=== PATIENT | male | born 1930 | race Caucasian/White ===

== ENCOUNTER 2020-05-03 04:54 | Inpatient (IN) ==
[2020-05-03 05:53] LABS: Bilirubin,Urine Negative (Negative); Blood, Urine Large mg/dL (Negative); Glucose,Urine (UA) 50 mg/dL (Negative); Ketones,Urine 20 mg/dL (Negative); Mucus,Urine Occasional /LPF (Occasional); Nitrite,Urine Negative (Negative); Protein,Urine 100 MG/DL; RBC,Urine 215 /HPF (0-4); Renal Epithelial Cells,Urine Occasional /HPF (<1); Squamous Epithelial Cell,Urine Occasional /HPF (0-10); Urine Appearance Slightly Hazy (Clear); Urine Color Yellow (Yellow); Urine Specific Gravity 1.016 (1.001-1.035); Urine Urobilinogen < 2.0 EU/DL (0.2-1.0); WBC,Urine 26 /HPF (0-6)
[2020-05-03 05:55] LABS: INR 1.1; PT Patient Result 12.1 SECS (9.8-11.9)
[2020-05-03] MEDS ORDERED: SODIUM CHLORIDE 0.9% 500 ML IV STA (06:14)
[2020-05-03 06:26] LABS: Albumin 2.7 G/DL (3.4-5.0); Bilirubin,Total 0.9 MG/DL (0.2-1.0); Calcium 8.1 MG/DL (8.5-10.1); Osmolality,Calculated 276.1 MOS/KG (273-304); Potassium 3.1 MMOL/L (3.5-5.1); Total Protein 7.1 G/DL (6.4-8.3)
[2020-05-03] MEDS ORDERED: DOXYCYCLINE HYCLATE INJ 100 MG in SODIUM CHLORIDE 0.9% 100 ML IV STA (07:30)
[2020-05-03] MEDS ORDERED: cefTRIAXone 1,000 MG in SODIUM CHLORIDE 0.9% 100 ML IV STA (07:30)
[2020-05-03 07:47] LABS: Eosinophils % 1.1 % (0.00-10.9); Hematocrit 39.7 VOL% (42.0-52.0); Hemoglobin 13.3 GM/DL (14.0-18.0); Immature Granulocytes % 0.7 %; Immature Granulocytes Absolute 0.02 #; Lymphocytes # 0.4 10*3/uL (1.4-4.0); Lymphocytes % 15.5 % (21.2-54.2); Mean Corpuscular HGB Conc 33.5 GM/DL (32-36); Mean Corpuscular Volume 79.1 FL (87-102); Monocytes % 9.7 % (1.7-12.7); Red Blood Count 5.02 MC/CUMM (3.8-5.5); Red Cell Distribution Width 13.3 % (9.3-17.3); White Blood Count 2.8 T/CUMM (4-12)
[2020-05-03 07:53] LABS: Platelet Count 94 T/CUMM (130-400)
[2020-05-03] MEDS ORDERED: ASPIRIN 325 MG TABLET PO STA (07:55)
[2020-05-03] MEDS ORDERED: GLUCAGON 1 MG VIAL IM PRN (08:06)
[2020-05-03] MEDS ORDERED: DOCUSATE SODIUM 100 MG CAPSULE PO PRN (08:06)
[2020-05-03] MEDS ORDERED: DEXTROSE 50% 25 GM/50 ML VIAL IV PRN (08:06)
[2020-05-03 08:27] LABS: Band Neutrophils 4 % (0-10); Lymphocytes 18 % (20-55); Segmented Neutrophils 71 % (50-85); Total Cells Counted 100
[2020-05-03 08:28] LABS: Hypochromasia 1+; Microcytosis 1+
[2020-05-03] MEDS: ASCORBIC ACID 500 MG TABLET PO SCH ×2 (08:50→21:36)
[2020-05-03] MEDS: DEXAMETHASONE 4 MG/1 ML VIAL IV SCH (08:51)
[2020-05-03] MEDS ORDERED: DEXAMETHASONE 10 MG/1 ML VIAL IV SCH (09:00)
[2020-05-03] MEDS: FAMOTIDINE 20 MG TABLET PO SCH ×2 (09:01→21:36)
[2020-05-03] MEDS: CHOLECALCIFEROL 1,000 UNIT TABLET PO SCH (09:01)
[2020-05-03] MEDS: ZINC GLUCONATE 50 MG TABLET PO SCH (09:01)
[2020-05-03] MEDS: INSULIN LISPRO 100 UNIT/ML SUBCUT SCH ×3 (12:02→21:49)
[2020-05-03] MEDS: ENOXAPARIN 40 MG/0.4 ML SYRINGE SUBCUT SCH (14:30)
[2020-05-03] MEDS ORDERED: REMDESIVIR 200 MG in SODIUM CHLORIDE 0.9% 210 ML IV ONE (15:00)
[2020-05-03] MEDS: hydrALAZINE 20 MG/1 ML VIAL IV PRN ×2 (16:56→22:45)
[2020-05-03] MEDS: MELATONIN 3 MG TABLET PO PRN (21:36)
[2020-05-03] MEDS: DOXYCYCLINE HYCLATE INJ 100 MG in SODIUM CHLORIDE 0.9% 100 ML IV SCH (22:33)
[2020-05-04 05:58] LABS: Basophils % 0.3 % (0.0-0.8); Hematocrit 41.8 VOL% (42.0-52.0); Hemoglobin 13.6 GM/DL (14.0-18.0); Immature Granulocytes % 0.3 %; Immature Granulocytes Absolute 0.01 #; Lymphocytes # 0.6 10*3/uL (1.4-4.0); Lymphocytes % 17.1 % (21.2-54.2); Mean Corpuscular HGB Conc 32.5 GM/DL (32-36); Mean Corpuscular Volume 79.9 FL (87-102); Mean Platelet Volume 10.4 FL (9.6-12.0); Monocytes % 9.6 % (1.7-12.7); Neutrophils % 72.7 % (38.7-73.9); Platelet Count 126 T/CUMM (130-400); Red Blood Count 5.23 MC/CUMM (3.8-5.5); Red Cell Distribution Width 13.2 % (9.3-17.3); White Blood Count 3.6 T/CUMM (4-12)
[2020-05-04 05:58] LABS: Albumin 2.4 G/DL (3.4-5.0); Bilirubin,Total 0.7 MG/DL (0.2-1.0); Calcium 7.8 MG/DL (8.5-10.1); Ferritin 854.2 ng/ml (26-388); Potassium 3.1 MMOL/L (3.5-5.1); Total Protein 6.9 G/DL (6.4-8.3)
[2020-05-04] MEDS: DEXAMETHASONE 4 MG/1 ML VIAL IV SCH (08:18)
[2020-05-04] MEDS: ENOXAPARIN 40 MG/0.4 ML SYRINGE SUBCUT SCH (08:18)
[2020-05-04] MEDS: ASCORBIC ACID 500 MG TABLET PO SCH ×2 (08:19→22:14)
[2020-05-04] MEDS: FAMOTIDINE 20 MG TABLET PO SCH ×2 (08:19→22:14)
[2020-05-04] MEDS: ZINC GLUCONATE 50 MG TABLET PO SCH (08:19)
[2020-05-04] MEDS: CHOLECALCIFEROL 1,000 UNIT TABLET PO SCH (08:19)
[2020-05-04] MEDS: cefTRIAXone 1,000 MG in SYRINGE 1 EACH IV SCH (08:26)
[2020-05-04] MEDS: ONDANSETRON 4 MG/2 ML VIAL IV PRN (08:27)
[2020-05-04] MEDS: DOXYCYCLINE HYCLATE INJ 100 MG in SODIUM CHLORIDE 0.9% 100 ML IV SCH ×2 (09:39→22:14)
[2020-05-04] MEDS: INSULIN LISPRO 100 UNIT/ML SUBCUT SCH ×4 (09:40→22:14)
[2020-05-04] MEDS: ACETAMINOPHEN 325 MG TABLET PO PRN (09:52)
[2020-05-04] MEDS: REMDESIVIR 100 MG in SODIUM CHLORIDE 0.9% 100 ML IV SCH (11:13)
[2020-05-04] MEDS: TAMSULOSIN 0.4 MG CAPSULE PO SCH (22:14)
[2020-05-04] MEDS: APIXABAN 2.5 MG TABLET PO SCH (22:14)
[2020-05-04] MEDS: carvediloL 12.5 MG TABLET PO SCH (22:33)
[2020-05-04] MEDS: SOTALOL 80 MG TABLET PO SCH (22:33)
[2020-05-05] MEDS: hydrALAZINE 20 MG/1 ML VIAL IV PRN (02:23)
[2020-05-05] MEDS ORDERED: METOPROLOL TARTRATE 5 MG/5 ML VIAL IV ONE (03:02)
[2020-05-05] MEDS: MELATONIN 3 MG TABLET PO PRN ×2 (03:12→20:47)
[2020-05-05 06:22] LABS: Hematocrit 43.9 VOL% (42.0-52.0); Hemoglobin 14.1 GM/DL (14.0-18.0); Immature Granulocytes % 0.4 %; Immature Granulocytes Absolute 0.02 #; Lymphocytes # 0.6 10*3/uL (1.4-4.0); Lymphocytes % 11.8 % (21.2-54.2); Mean Corpuscular HGB Conc 32.1 GM/DL (32-36); Mean Corpuscular Volume 80.4 FL (87-102); Mean Platelet Volume 10.3 FL (9.6-12.0); Monocytes % 7.1 % (1.7-12.7); Neutrophils % 80.7 % (38.7-73.9); Platelet Count 159 T/CUMM (130-400); Red Blood Count 5.46 MC/CUMM (3.8-5.5); Red Cell Distribution Width 13.3 % (9.3-17.3); White Blood Count 4.7 T/CUMM (4-12)
[2020-05-05 06:35] LABS: Albumin 2.4 G/DL (3.4-5.0); Bilirubin,Total 0.6 MG/DL (0.2-1.0); Osmolality,Calculated 277.8 MOS/KG (273-304); Potassium 2.9 MMOL/L (3.5-5.1); Total Protein 6.8 G/DL (6.4-8.3)
[2020-05-05 09:00] LABS: Band Neutrophils 5 % (0-10); Lymphocytes 7 % (20-55); Metamyelocytes 2 %; Platelet Estimate Normal; Segmented Neutrophils 81 % (50-85); Total Cells Counted 100
[2020-05-05] MEDS: ONDANSETRON 4 MG/2 ML VIAL IV PRN (09:03)
[2020-05-05] MEDS: cefTRIAXone 1,000 MG in SYRINGE 1 EACH IV SCH (09:06)
[2020-05-05] MEDS: DOXYCYCLINE HYCLATE INJ 100 MG in SODIUM CHLORIDE 0.9% 100 ML IV SCH ×2 (09:07→20:47)
[2020-05-05] MEDS: DEXAMETHASONE 4 MG/1 ML VIAL IV SCH (09:07)
[2020-05-05] MEDS: ZINC GLUCONATE 50 MG TABLET PO SCH (09:08)
[2020-05-05] MEDS: ACETAMINOPHEN 325 MG TABLET PO PRN ×2 (09:08→14:10)
[2020-05-05] MEDS: INSULIN LISPRO 100 UNIT/ML SUBCUT SCH ×4 (09:08→20:47)
[2020-05-05] MEDS: TAMSULOSIN 0.4 MG CAPSULE PO SCH ×2 (09:09→20:47)
[2020-05-05] MEDS: ASCORBIC ACID 500 MG TABLET PO SCH ×2 (09:09→20:47)
[2020-05-05] MEDS: amLODIPine 5 MG TABLET PO SCH (09:09)
[2020-05-05] MEDS: ESCITALOPRAM 10 MG TABLET PO SCH (09:09)
[2020-05-05] MEDS: DUTASTERIDE 0.5 MG CAPSULE PO SCH (09:09)
[2020-05-05] MEDS: carvediloL 12.5 MG TABLET PO SCH ×2 (09:09→20:47)
[2020-05-05] MEDS: APIXABAN 2.5 MG TABLET PO SCH ×2 (09:09→20:47)
[2020-05-05] MEDS: FAMOTIDINE 20 MG TABLET PO SCH ×2 (09:09→20:47)
[2020-05-05] MEDS: SOTALOL 80 MG TABLET PO SCH ×2 (09:09→20:47)
[2020-05-05] MEDS: CHOLECALCIFEROL 1,000 UNIT TABLET PO SCH (09:09)
[2020-05-05] MEDS: REMDESIVIR 100 MG in SODIUM CHLORIDE 0.9% 100 ML IV SCH (10:39)
[2020-05-05] MEDS: POTASSIUM CHLORIDE 20 MEQ TABLET PO PRN ×4 (10:39→18:10)
[2020-05-05] MEDS: guaiFENesin/CODEINE 5 ML LIQUID PO PRN (20:47)
[2020-05-06 05:20] LABS: Hematocrit 47.5 VOL% (42.0-52.0); Hemoglobin 15.3 GM/DL (14.0-18.0); Immature Granulocytes % 0.7 %; Immature Granulocytes Absolute 0.04 #; Lymphocytes # 0.9 10*3/uL (1.4-4.0); Mean Corpuscular HGB Conc 32.2 GM/DL (32-36); Mean Corpuscular Volume 81.9 FL (87-102); Mean Platelet Volume 10.4 FL (9.6-12.0); Neutrophils % 78.3 % (38.7-73.9); Platelet Count 199 T/CUMM (130-400); Red Cell Distribution Width 13.9 % (9.3-17.3); White Blood Count 6.2 T/CUMM (4-12)
[2020-05-06 05:51] LABS: Albumin 2.7 G/DL (3.4-5.0); Bilirubin,Total 0.6 MG/DL (0.2-1.0); Calcium 8.6 MG/DL (8.5-10.1); Osmolality,Calculated 280.8 MOS/KG (273-304); Potassium 3.6 MMOL/L (3.5-5.1); Total Protein 7.6 G/DL (6.4-8.3)
[2020-05-06 07:49] LABS: Band Neutrophils 5 % (0-10); Hypochromasia 1+; Lymphocytes 12 % (20-55); Microcytosis 1+; Ovalocytes Slight; Platelet Estimate Adequate; Segmented Neutrophils 81 % (50-85); Total Cells Counted 100
[2020-05-06] MEDS: INSULIN LISPRO 100 UNIT/ML SUBCUT SCH ×4 (08:53→21:50)
[2020-05-06] MEDS: CHOLECALCIFEROL 1,000 UNIT TABLET PO SCH (08:53)
[2020-05-06] MEDS: ASCORBIC ACID 500 MG TABLET PO SCH ×2 (08:53→21:42)
[2020-05-06] MEDS: FAMOTIDINE 20 MG TABLET PO SCH ×2 (08:53→21:41)
[2020-05-06] MEDS: ESCITALOPRAM 10 MG TABLET PO SCH (08:53)
[2020-05-06] MEDS: APIXABAN 2.5 MG TABLET PO SCH ×2 (08:53→21:42)
[2020-05-06] MEDS: DUTASTERIDE 0.5 MG CAPSULE PO SCH (08:54)
[2020-05-06] MEDS: carvediloL 12.5 MG TABLET PO SCH ×2 (08:54→21:41)
[2020-05-06] MEDS: amLODIPine 5 MG TABLET PO SCH (08:54)
[2020-05-06] MEDS: lisinopriL 20 MG TABLET PO SCH (08:54)
[2020-05-06] MEDS: TAMSULOSIN 0.4 MG CAPSULE PO SCH ×2 (08:54→21:42)
[2020-05-06] MEDS: SOTALOL 80 MG TABLET PO SCH ×2 (08:54→21:42)
[2020-05-06] MEDS: cefTRIAXone 1,000 MG in SYRINGE 1 EACH IV SCH (08:55)
[2020-05-06] MEDS: DEXAMETHASONE 4 MG/1 ML VIAL IV SCH (08:55)
[2020-05-06] MEDS: DOXYCYCLINE HYCLATE INJ 100 MG in SODIUM CHLORIDE 0.9% 100 ML IV SCH ×2 (08:57→21:39)
[2020-05-06] MEDS ORDERED: VANCOMYCIN INJ 1,500 MG in SODIUM CHLORIDE 0.9% 250 ML IV SCH (10:00)
[2020-05-06] MEDS: REMDESIVIR 100 MG in SODIUM CHLORIDE 0.9% 100 ML IV SCH (11:00)
[2020-05-06] MEDS: ZINC GLUCONATE 50 MG TABLET PO SCH (11:00)
[2020-05-06] MEDS ORDERED: ALBUTEROL INHALER 18 GM INH PRN (13:15)
[2020-05-06] MEDS: MELATONIN 3 MG TABLET PO PRN (21:41)
[2020-05-07 05:40] LABS: Basophils % 0.2 % (0.0-0.8); Hematocrit 43.9 VOL% (42.0-52.0); Hemoglobin 14.6 GM/DL (14.0-18.0); Immature Granulocytes % 0.3 %; Immature Granulocytes Absolute 0.02 #; Lymphocytes # 0.7 10*3/uL (1.4-4.0); Lymphocytes % 12.2 % (21.2-54.2); Mean Corpuscular HGB Conc 33.3 GM/DL (32-36); Mean Corpuscular Volume 78.8 FL (87-102); Mean Platelet Volume 10.2 FL (9.6-12.0); Monocytes % 6.1 % (1.7-12.7); Neutrophils % 81.2 % (38.7-73.9); Platelet Count 215 T/CUMM (130-400); Red Blood Count 5.57 MC/CUMM (3.8-5.5); Red Cell Distribution Width 13.5 % (9.3-17.3); White Blood Count 5.8 T/CUMM (4-12)
[2020-05-07 06:03] LABS: Albumin 2.5 G/DL (3.4-5.0); Bilirubin,Total 0.5 MG/DL (0.2-1.0); Calcium 8.4 MG/DL (8.5-10.1); Osmolality,Calculated 288.4 MOS/KG (273-304); Potassium 3.3 MMOL/L (3.5-5.1); Total Protein 6.8 G/DL (6.4-8.3)
[2020-05-07 06:22] LABS: Lymphocytes 9 % (20-55); Ovalocytes Slight; Platelet Estimate Adequate; Segmented Neutrophils 88 % (50-85); Total Cells Counted 100
[2020-05-07] MEDS: SOTALOL 80 MG TABLET PO SCH ×2 (10:34→20:53)
[2020-05-07] MEDS: ZINC GLUCONATE 50 MG TABLET PO SCH (10:34)
[2020-05-07] MEDS: DUTASTERIDE 0.5 MG CAPSULE PO SCH (10:34)
[2020-05-07] MEDS: CHOLECALCIFEROL 1,000 UNIT TABLET PO SCH (10:34)
[2020-05-07] MEDS: guaiFENesin/CODEINE 5 ML LIQUID PO PRN (10:34)
[2020-05-07] MEDS: ASCORBIC ACID 500 MG TABLET PO SCH ×2 (10:35→20:52)
[2020-05-07] MEDS: lisinopriL 20 MG TABLET PO SCH (10:35)
[2020-05-07] MEDS: APIXABAN 2.5 MG TABLET PO SCH ×2 (10:35→20:52)
[2020-05-07] MEDS: POTASSIUM CHLORIDE 20 MEQ TABLET PO PRN (10:35)
[2020-05-07] MEDS: TAMSULOSIN 0.4 MG CAPSULE PO SCH ×2 (10:35→20:53)
[2020-05-07] MEDS: FAMOTIDINE 20 MG TABLET PO SCH ×2 (10:35→20:53)
[2020-05-07] MEDS: carvediloL 12.5 MG TABLET PO SCH ×2 (10:35→20:53)
[2020-05-07] MEDS: amLODIPine 5 MG TABLET PO SCH (10:35)
[2020-05-07] MEDS: ESCITALOPRAM 10 MG TABLET PO SCH (10:35)
[2020-05-07] MEDS: DEXAMETHASONE 4 MG/1 ML VIAL IV SCH (10:36)
[2020-05-07] MEDS: REMDESIVIR 100 MG in SODIUM CHLORIDE 0.9% 100 ML IV SCH (10:36)
[2020-05-07] MEDS: cefTRIAXone 1,000 MG in SYRINGE 1 EACH IV SCH (10:36)
[2020-05-07] MEDS: INSULIN LISPRO 100 UNIT/ML SUBCUT SCH ×4 (10:37→20:52)
[2020-05-07] MEDS: DOXYCYCLINE HYCLATE INJ 100 MG in SODIUM CHLORIDE 0.9% 100 ML IV SCH ×2 (12:33→20:53)
[2020-05-08] MEDS: INSULIN LISPRO 100 UNIT/ML SUBCUT SCH ×4 (09:14→20:43)
[2020-05-08] MEDS: ASCORBIC ACID 500 MG TABLET PO SCH ×3 (09:15→21:26)
[2020-05-08] MEDS: DEXAMETHASONE 4 MG/1 ML VIAL IV SCH (09:15)
[2020-05-08] MEDS: ESCITALOPRAM 10 MG TABLET PO SCH (09:15)
[2020-05-08] MEDS: SOTALOL 80 MG TABLET PO SCH ×3 (09:15→21:14)
[2020-05-08] MEDS: amLODIPine 5 MG TABLET PO SCH (09:15)
[2020-05-08] MEDS: lisinopriL 20 MG TABLET PO SCH (09:15)
[2020-05-08] MEDS: DUTASTERIDE 0.5 MG CAPSULE PO SCH (09:15)
[2020-05-08] MEDS: CHOLECALCIFEROL 1,000 UNIT TABLET PO SCH (09:16)
[2020-05-08] MEDS: TAMSULOSIN 0.4 MG CAPSULE PO SCH ×3 (09:16→21:26)
[2020-05-08] MEDS: APIXABAN 2.5 MG TABLET PO SCH ×3 (09:16→21:26)
[2020-05-08] MEDS: carvediloL 12.5 MG TABLET PO SCH ×3 (09:16→21:24)
[2020-05-08] MEDS: ZINC GLUCONATE 50 MG TABLET PO SCH (09:16)
[2020-05-08] MEDS: cefTRIAXone 1,000 MG in SYRINGE 1 EACH IV SCH (09:16)
[2020-05-08] MEDS: FAMOTIDINE 20 MG TABLET PO SCH ×3 (09:16→21:26)
[2020-05-08 10:50] LABS: Calcium 8.3 MG/DL (8.5-10.1); Osmolality,Calculated 303.6 MOS/KG (273-304); Potassium 3.4 MMOL/L (3.5-5.1)
[2020-05-08 11:14] LABS: Urine Appearance Turbid (Clear); Urine Color Brown (Yellow); Urine Specific Gravity 1.015 (1.001-1.035)
[2020-05-08 11:15] LABS: Bilirubin,Urine Negative (Negative); Blood, Urine Large mg/dL (Negative); Glucose,Urine (UA) Negative (Negative); Ketones,Urine 1+ mg/dL (Negative); Mucus,Urine Trace /LPF (Occasional); Nitrite,Urine Negative (Negative); Protein,Urine 3+ MG/DL; RBC,Urine TNTC /HPF (0-4); Squamous Epithelial Cell,Urine Rare /HPF (0-10); Urine Urobilinogen < 2.0 EU/DL (0.2-1.0)
[2020-05-08] MEDS: DOXYCYCLINE HYCLATE INJ 100 MG in SODIUM CHLORIDE 0.9% 100 ML IV SCH (11:58)
[2020-05-08] MEDS: DOXYCYCLINE HYCLATE 100 MG CAPSULE PO SCH ×3 (14:03→21:26)
[2020-05-08] MEDS: ACETAMINOPHEN 325 MG TABLET PO PRN (14:57)
[2020-05-08] MEDS: guaiFENesin/CODEINE 5 ML LIQUID PO PRN (14:57)
[2020-05-09] MEDS: cefTRIAXone 1,000 MG in SYRINGE 1 EACH IV SCH (08:51)
[2020-05-09] MEDS: INSULIN LISPRO 100 UNIT/ML SUBCUT SCH ×4 (08:51→20:31)
[2020-05-09] MEDS: DEXAMETHASONE 4 MG/1 ML VIAL IV SCH (08:52)
[2020-05-09] MEDS: lisinopriL 20 MG TABLET PO SCH (08:52)
[2020-05-09] MEDS: TAMSULOSIN 0.4 MG CAPSULE PO SCH ×2 (08:52→20:28)
[2020-05-09] MEDS: CHOLECALCIFEROL 1,000 UNIT TABLET PO SCH (08:52)
[2020-05-09] MEDS: SOTALOL 80 MG TABLET PO SCH ×2 (08:52→20:29)
[2020-05-09] MEDS: ASCORBIC ACID 500 MG TABLET PO SCH ×2 (08:52→20:29)
[2020-05-09] MEDS: FAMOTIDINE 20 MG TABLET PO SCH ×2 (08:53→20:29)
[2020-05-09] MEDS: ESCITALOPRAM 10 MG TABLET PO SCH (08:53)
[2020-05-09] MEDS: carvediloL 12.5 MG TABLET PO SCH ×2 (08:53→20:28)
[2020-05-09] MEDS: amLODIPine 5 MG TABLET PO SCH (08:53)
[2020-05-09] MEDS: APIXABAN 2.5 MG TABLET PO SCH ×2 (08:53→20:29)
[2020-05-09] MEDS: DOXYCYCLINE HYCLATE 100 MG CAPSULE PO SCH ×2 (08:53→20:29)
[2020-05-09] MEDS: ZINC GLUCONATE 50 MG TABLET PO SCH (11:38)
[2020-05-09] MEDS: DUTASTERIDE 0.5 MG CAPSULE PO SCH (11:38)
[2020-05-09] MEDS: MELATONIN 3 MG TABLET PO PRN (20:29)
[2020-05-10] MEDS: CHOLECALCIFEROL 1,000 UNIT TABLET PO SCH (08:59)
[2020-05-10] MEDS: DUTASTERIDE 0.5 MG CAPSULE PO SCH (08:59)
[2020-05-10] MEDS: FAMOTIDINE 20 MG TABLET PO SCH ×2 (08:59→21:50)
[2020-05-10] MEDS: SOTALOL 80 MG TABLET PO SCH ×2 (08:59→21:49)
[2020-05-10] MEDS: ASCORBIC ACID 500 MG TABLET PO SCH ×2 (08:59→21:50)
[2020-05-10] MEDS: APIXABAN 2.5 MG TABLET PO SCH ×2 (08:59→21:49)
[2020-05-10] MEDS: lisinopriL 20 MG TABLET PO SCH (08:59)
[2020-05-10] MEDS: amLODIPine 5 MG TABLET PO SCH (08:59)
[2020-05-10] MEDS: ESCITALOPRAM 10 MG TABLET PO SCH (09:00)
[2020-05-10] MEDS: carvediloL 12.5 MG TABLET PO SCH ×2 (09:00→21:49)
[2020-05-10] MEDS: TAMSULOSIN 0.4 MG CAPSULE PO SCH ×2 (09:00→21:49)
[2020-05-10] MEDS: INSULIN LISPRO 100 UNIT/ML SUBCUT SCH ×4 (09:00→21:49)
[2020-05-10 09:08] LABS: Eosinophils % 0.1 % (0.00-10.9); Hemoglobin 13.8 GM/DL (14.0-18.0); Immature Granulocytes % 0.6 %; Immature Granulocytes Absolute 0.04 #; Lymphocytes # 0.5 10*3/uL (1.4-4.0); Lymphocytes % 6.3 % (21.2-54.2); Mean Corpuscular HGB Conc 32.1 GM/DL (32-36); Mean Corpuscular Volume 79.9 FL (87-102); Mean Platelet Volume 9.7 FL (9.6-12.0); Monocytes % 2.7 % (1.7-12.7); Neutrophils % 90.3 % (38.7-73.9); Platelet Count 220 T/CUMM (130-400); Red Blood Count 5.38 MC/CUMM (3.8-5.5); Red Cell Distribution Width 14.4 % (9.3-17.3); White Blood Count 7.2 T/CUMM (4-12)
[2020-05-10 09:33] LABS: Albumin 2.4 G/DL (3.4-5.0); Bilirubin,Total 0.8 MG/DL (0.2-1.0); Calcium 8.3 MG/DL (8.5-10.1); Ferritin 759.8 ng/ml (26-388); Osmolality,Calculated 295.1 MOS/KG (273-304); Potassium 3.2 MMOL/L (3.5-5.1); Total Protein 6.5 G/DL (6.4-8.3)
[2020-05-10] MEDS: DEXAMETHASONE 4 MG/1 ML VIAL IV SCH (09:59)
[2020-05-10] MEDS: ZINC GLUCONATE 50 MG TABLET PO SCH (10:00)
[2020-05-11] MEDS: INSULIN LISPRO 100 UNIT/ML SUBCUT SCH ×4 (08:13→21:35)
[2020-05-11] MEDS: ASCORBIC ACID 500 MG TABLET PO SCH ×2 (08:14→21:36)
[2020-05-11] MEDS: carvediloL 12.5 MG TABLET PO SCH (08:14)
[2020-05-11] MEDS: TAMSULOSIN 0.4 MG CAPSULE PO SCH ×2 (08:15→21:35)
[2020-05-11] MEDS: APIXABAN 2.5 MG TABLET PO SCH ×2 (08:15→21:35)
[2020-05-11] MEDS: DEXAMETHASONE 4 MG/1 ML VIAL IV SCH (08:15)
[2020-05-11] MEDS: CHOLECALCIFEROL 1,000 UNIT TABLET PO SCH (08:15)
[2020-05-11] MEDS: SOTALOL 80 MG TABLET PO SCH ×2 (08:15→21:35)
[2020-05-11] MEDS: amLODIPine 5 MG TABLET PO SCH (08:16)
[2020-05-11] MEDS: lisinopriL 20 MG TABLET PO SCH (08:16)
[2020-05-11] MEDS: FAMOTIDINE 20 MG TABLET PO SCH ×2 (08:16→21:36)
[2020-05-11] MEDS: ZINC GLUCONATE 50 MG TABLET PO SCH (08:16)
[2020-05-11] MEDS: ESCITALOPRAM 10 MG TABLET PO SCH (08:16)
[2020-05-11] MEDS: DUTASTERIDE 0.5 MG CAPSULE PO SCH (08:16)
[2020-05-11 13:44] LABS: Calcium 7.8 MG/DL (8.5-10.1); Osmolality,Calculated 288.4 MOS/KG (273-304); Potassium 3.3 MMOL/L (3.5-5.1)
[2020-05-11] MEDS: POTASSIUM CHLORIDE 20 MEQ TABLET PO PRN ×2 (16:47→21:44)
[2020-05-11] MEDS: carvediloL 6.25 MG TABLET PO SCH (21:35)
[2020-05-11] MEDS: MELATONIN 3 MG TABLET PO PRN (21:46)
[2020-05-12 05:04] LABS: Eosinophils % 0.2 % (0.00-10.9); Hematocrit 39.9 VOL% (42.0-52.0); Hemoglobin 13.1 GM/DL (14.0-18.0); Immature Granulocytes % 1.1 %; Immature Granulocytes Absolute 0.07 #; Lymphocytes # 0.3 10*3/uL (1.4-4.0); Mean Corpuscular HGB Conc 32.8 GM/DL (32-36); Mean Corpuscular Volume 78.5 FL (87-102); Mean Platelet Volume 9.8 FL (9.6-12.0); Monocytes % 3.5 % (1.7-12.7); Neutrophils % 90.2 % (38.7-73.9); Platelet Count 161 T/CUMM (130-400); Red Blood Count 5.08 MC/CUMM (3.8-5.5); Red Cell Distribution Width 14.4 % (9.3-17.3); White Blood Count 6.6 T/CUMM (4-12)
[2020-05-12 05:50] LABS: Bilirubin,Total 0.9 MG/DL (0.2-1.0); Calcium 7.8 MG/DL (8.5-10.1); Osmolality,Calculated 290.3 MOS/KG (273-304); Potassium 4.3 MMOL/L (3.5-5.1); Total Protein 5.5 G/DL (6.4-8.3)
[2020-05-12] MEDS: INSULIN LISPRO 100 UNIT/ML SUBCUT SCH ×4 (08:19→21:50)
[2020-05-12] MEDS: lisinopriL 20 MG TABLET PO SCH (08:20)
[2020-05-12] MEDS: DEXAMETHASONE 4 MG/1 ML VIAL IV SCH (08:20)
[2020-05-12] MEDS: CHOLECALCIFEROL 1,000 UNIT TABLET PO SCH (08:20)
[2020-05-12] MEDS: APIXABAN 2.5 MG TABLET PO SCH ×2 (08:20→21:50)
[2020-05-12] MEDS: amLODIPine 5 MG TABLET PO SCH (08:20)
[2020-05-12] MEDS: ASCORBIC ACID 500 MG TABLET PO SCH ×2 (08:21→21:51)
[2020-05-12] MEDS: TAMSULOSIN 0.4 MG CAPSULE PO SCH ×2 (08:21→21:50)
[2020-05-12] MEDS: ZINC GLUCONATE 50 MG TABLET PO SCH (08:21)
[2020-05-12] MEDS: ESCITALOPRAM 10 MG TABLET PO SCH (08:21)
[2020-05-12] MEDS: FAMOTIDINE 20 MG TABLET PO SCH ×2 (08:21→21:51)
[2020-05-12] MEDS: DUTASTERIDE 0.5 MG CAPSULE PO SCH (08:21)
[2020-05-12] MEDS: carvediloL 6.25 MG TABLET PO SCH ×2 (08:21→21:50)
[2020-05-12] MEDS: SOTALOL 80 MG TABLET PO SCH ×2 (08:21→21:50)
[2020-05-12] MEDS: MELATONIN 3 MG TABLET PO PRN (21:51)
[2020-05-13 05:26] LABS: Eosinophils % 0.6 % (0.00-10.9); Hematocrit 41.7 VOL% (42.0-52.0); Hemoglobin 13.6 GM/DL (14.0-18.0); Immature Granulocytes % 0.7 %; Immature Granulocytes Absolute 0.05 #; Lymphocytes # 0.4 10*3/uL (1.4-4.0); Mean Corpuscular HGB Conc 32.6 GM/DL (32-36); Mean Corpuscular Volume 79.7 FL (87-102); Mean Platelet Volume 10.1 FL (9.6-12.0); Monocytes % 2.8 % (1.7-12.7); Neutrophils % 90.9 % (38.7-73.9); Platelet Count 146 T/CUMM (130-400); Red Blood Count 5.23 MC/CUMM (3.8-5.5); Red Cell Distribution Width 14.6 % (9.3-17.3); White Blood Count 7.2 T/CUMM (4-12)
[2020-05-13 05:48] LABS: Total Cells Counted 100
[2020-05-13 05:49] LABS: Anisocytosis Slight; Band Neutrophils 2 % (0-10); Lymphocytes 4 % (20-55); Microcytosis Slight; Platelet Estimate Decreased; Segmented Neutrophils 91 % (50-85)
[2020-05-13 05:57] LABS: Bilirubin,Total 1.1 MG/DL (0.2-1.0); Osmolality,Calculated 284.5 MOS/KG (273-304); Potassium 3.7 MMOL/L (3.5-5.1); Total Protein 5.9 G/DL (6.4-8.3)
[2020-05-13] MEDS ORDERED: GLIMEPIRIDE 2 MG TABLET PO SCH ×2 (08:00→09:00)
[2020-05-13] MEDS: amLODIPine 5 MG TABLET PO SCH (08:48)
[2020-05-13] MEDS: SOTALOL 80 MG TABLET PO SCH (08:48)
[2020-05-13] MEDS: CHOLECALCIFEROL 1,000 UNIT TABLET PO SCH (08:48)
[2020-05-13] MEDS: ZINC GLUCONATE 50 MG TABLET PO SCH (08:48)
[2020-05-13] MEDS: carvediloL 6.25 MG TABLET PO SCH (08:48)
[2020-05-13] MEDS: ESCITALOPRAM 10 MG TABLET PO SCH (08:48)
[2020-05-13] MEDS: lisinopriL 20 MG TABLET PO SCH (08:48)
[2020-05-13] MEDS: DUTASTERIDE 0.5 MG CAPSULE PO SCH (08:48)
[2020-05-13] MEDS: FAMOTIDINE 20 MG TABLET PO SCH (08:48)
[2020-05-13] MEDS: TAMSULOSIN 0.4 MG CAPSULE PO SCH (08:48)
[2020-05-13] MEDS: ASCORBIC ACID 500 MG TABLET PO SCH (08:48)
[2020-05-13] MEDS: APIXABAN 2.5 MG TABLET PO SCH (08:48)
[2020-05-13] MEDS: INSULIN LISPRO 100 UNIT/ML SUBCUT SCH ×3 (09:35→17:32)
[2020-05-13] MEDS ORDERED: POLYETHYLENE GLYCOL POWDER 17 GM PACK PO ONE (14:20)
[2020-05-13] MEDS ORDERED: BISACODYL 10 MG SUPP RECTAL ONE (14:25)
[2020-05-13 16:03] VITALS: BP 133/59
== END 2020-05-13 17:20 | disposition swing bed (61) | DRG 177 ==
LOC: EDUNIT# → EDBD → N.ED 04:54 → N.EDINP 08:06 → SUATTDRO 08:06 → N.2E 13:50
PROVIDERS: ADMIT Internal Medicine; ATTEND Internal Medicine

== ENCOUNTER 2020-05-18 05:15 | Inpatient (IN) ==
[2020-05-18] MEDS ORDERED: methylPREDNISolone SOD SUC 125 MG/2 ML VIAL IV STA (05:38)
[2020-05-18] MEDS ORDERED: SODIUM CHLORIDE 0.9% 500 ML IV STA (05:40)
[2020-05-18 05:48] LABS: Basophils % 0.1 % (0.0-0.8); Eosinophils % 0.2 % (0.00-10.9); Hemoglobin 13.8 GM/DL (14.0-18.0); Immature Granulocytes % 0.8 %; Immature Granulocytes Absolute 0.09 #; Lymphocytes # 0.5 10*3/uL (1.4-4.0); Lymphocytes % 4.5 % (21.2-54.2); Mean Corpuscular HGB Conc 32.9 GM/DL (32-36); Mean Platelet Volume 10.4 FL (9.6-12.0); Monocytes % 2.3 % (1.7-12.7); Neutrophils % 92.1 % (38.7-73.9); Platelet Count 89 T/CUMM (130-400); Red Blood Count 5.25 MC/CUMM (3.8-5.5); Red Cell Distribution Width 15.4 % (9.3-17.3)
[2020-05-18 06:13] LABS: Alanine Aminotransferase 16 U/L (16-61); Albumin 1.7 G/DL (3.4-5.0); Alkaline Phosphatase 100 U/L (45-117); Aspartate Amino Transferase 42 U/L (0-37); Blood Urea Nitrogen 19 MG/DL (7-18); Calcium 7.5 MG/DL (8.5-10.1); Estimated Glom Filtration Rate 92 ML/MIN; Glucose 160 MG/DL (74-106); Total Protein 6.1 G/DL (6.4-8.3)
[2020-05-18 06:23] LABS: ABG Base Excess 2.2 MMOL/L (-2.5-2.5); ABG Oxygen Saturation 80.7 % (95-100); ABG PCO2 29.8 MM HG (35-48); ABG PH 7.518 (7.35-7.45); ABG PO2 44.6 MM HG (80-95); ABG TCO2 21.1 MMOL/L (23-27)
[2020-05-18] MEDS ORDERED: cefTRIAXone 1,000 MG in SODIUM CHLORIDE 0.9% 100 ML IV STA (06:32)
[2020-05-18] MEDS ORDERED: ALBUTEROL 2.5 MG/3 ML NEB RESP TX STA (06:36)
[2020-05-18 06:46] LABS: INR 1.4; PT Patient Result 15.2 SECS (9.8-11.9)
[2020-05-18 07:07] LABS: Bacteria,Urine Few /HPF (Few); Bilirubin,Urine Negative (Negative); Blood, Urine Moderate mg/dL (Negative); Glucose,Urine (UA) 50 mg/dL (Negative); Ketones,Urine 5 mg/dL (Negative); Mucus,Urine Few /LPF (Occasional); Nitrite,Urine Negative (Negative); Protein,Urine 100 MG/DL; RBC,Urine 1806 /HPF (0-4); Urine Appearance CLOUDY (Clear); Urine Color Red (Yellow); Urine Specific Gravity 1.015 (1.001-1.035); Urine Urobilinogen < 2.0 EU/DL (0.2-1.0); WBC,Urine 13 /HPF (0-6)
[2020-05-18 07:21] LABS: Anisocytosis Slight; Band Neutrophils 6 % (0-10); Lymphocytes 5 % (20-55); Platelet Estimate Decreased; Segmented Neutrophils 87 % (50-85); Total Cells Counted 100
[2020-05-18] MEDS ORDERED: ACETAMINOPHEN 325 MG TABLET PO PRN (09:06)
[2020-05-18] MEDS ORDERED: DOCUSATE SODIUM 100 MG CAPSULE PO PRN (09:06)
[2020-05-18] MEDS ORDERED: DEXTROSE 50% 25 GM/50 ML VIAL IV PRN (09:06)
[2020-05-18] MEDS ORDERED: GLUCAGON 1 MG VIAL IM PRN (09:06)
[2020-05-18] MEDS ORDERED: ONDANSETRON 4 MG/2 ML VIAL IV PRN (09:06)
[2020-05-18] MEDS ORDERED: SODIUM CHLORIDE 0.9% 1,000 ML IV SCH (09:30)
[2020-05-18] MEDS: INSULIN LISPRO 100 UNIT/ML SUBCUT SCH ×3 (12:28→20:15)
[2020-05-18] MEDS: CLINDAMYCIN INJ 600 MG in PREMIX 1 EACH IV SCH ×2 (13:53→17:11)
[2020-05-18] MEDS: methylPREDNISolone SOD SUC 40 MG/1 ML VIAL IV SCH (17:52)
[2020-05-18] MEDS: ASCORBIC ACID 500 MG TABLET PO SCH (20:16)
[2020-05-19] MEDS: CLINDAMYCIN INJ 600 MG in PREMIX 1 EACH IV SCH ×3 (02:30→18:14)
[2020-05-19] MEDS: methylPREDNISolone SOD SUC 40 MG/1 ML VIAL IV SCH ×2 (05:46→18:14)
[2020-05-19 06:36] LABS: Hematocrit 37.7 VOL% (42.0-52.0); Hemoglobin 12.2 GM/DL (14.0-18.0); Immature Granulocytes % 0.9 %; Immature Granulocytes Absolute 0.07 #; Lymphocytes # 0.3 10*3/uL (1.4-4.0); Lymphocytes % 4.2 % (21.2-54.2); Mean Corpuscular HGB Conc 32.4 GM/DL (32-36); Mean Corpuscular Volume 80.4 FL (87-102); Mean Platelet Volume 11.5 FL (9.6-12.0); Monocytes % 2.3 % (1.7-12.7); Neutrophils % 92.6 % (38.7-73.9); Platelet Count 80 T/CUMM (130-400); Red Blood Count 4.69 MC/CUMM (3.8-5.5); Red Cell Distribution Width 15.7 % (9.3-17.3); White Blood Count 7.9 T/CUMM (4-12)
[2020-05-19 06:55] LABS: Albumin 1.4 G/DL (3.4-5.0); Bilirubin,Total 0.8 MG/DL (0.2-1.0); Calcium 7.9 MG/DL (8.5-10.1); Osmolality,Calculated 299.7 MOS/KG (273-304); Total Protein 5.9 G/DL (6.4-8.3)
[2020-05-19] MEDS ORDERED: MAGNESIUM SULF RIDER 4 GM in PREMIX 1 EACH IV PRN (07:50)
[2020-05-19] MEDS ORDERED: POTASSIUM CHLORIDE 20 MEQ TABLET PO PRN (07:50)
[2020-05-19] MEDS ORDERED: MAGNESIUM SULF RIDER 2 GM in PREMIX 1 EACH IV PRN (07:50)
[2020-05-19 08:20] LABS: Lymphocytes 1 % (20-55); Microcytosis Slight; Polychromasia Few; Segmented Neutrophils 99 % (50-85); Total Cells Counted 100
[2020-05-19 08:21] LABS: Acanthocytes Few; Platelet Estimate Decreased; Spherocytes Few
[2020-05-19] MEDS ORDERED: ZINC GLUCONATE 50 MG TABLET PO SCH (09:00)
[2020-05-19] MEDS ORDERED: PANTOPRAZOLE 40 MG TABLET PO SCH (09:00)
[2020-05-19] MEDS ORDERED: CHOLECALCIFEROL 1,000 UNIT TABLET PO SCH (09:00)
[2020-05-19] MEDS: INSULIN LISPRO 100 UNIT/ML SUBCUT SCH ×4 (09:30→20:36)
[2020-05-19] MEDS: ASCORBIC ACID 500 MG TABLET PO SCH ×2 (10:15→20:37)
[2020-05-19] MEDS ORDERED: LORazepam 2 MG/1 ML VIAL IV ONE ×2 (11:06→23:09)
[2020-05-19 11:36] LABS: ABG Base Excess 3.1 MMOL/L (-2.5-2.5); ABG Oxygen Saturation 87.2 % (95-100); ABG PH 7.502 (7.35-7.45); ABG PO2 53.8 MM HG (80-95); ABG TCO2 22.6 MMOL/L (23-27)
[2020-05-19] MEDS: POTASSIUM CHLORIDE RIDER 10 MEQ in PREMIX 1 EACH IV PRN ×3 (12:00→14:15)
[2020-05-19] MEDS: ENOXAPARIN 100 MG/ML SYRINGE SUBCUT SCH ×2 (12:00→23:56)
[2020-05-19] MEDS: SODIUM CHLORIDE 0.9% 1,000 ML IV SCH (12:05)
[2020-05-20] MEDS: SODIUM CHLORIDE 0.9% 1,000 ML IV SCH (00:49)
[2020-05-20] MEDS: CLINDAMYCIN INJ 600 MG in PREMIX 1 EACH IV SCH (02:29)
[2020-05-20 03:46] LABS: ABG Base Excess 1.7 MMOL/L (-2.5-2.5); ABG HCO3 25.5 MMOL/L (20-26); ABG Oxygen Saturation 85.5 % (95-100); ABG PCO2 31.9 MM HG (35-48); ABG PH 7.487 (7.35-7.45); ABG PO2 51.8 MM HG (80-95); ABG TCO2 20.6 MMOL/L (23-27); Allen Test Positive; Pt O2 Delivery Device BIPAP
[2020-05-20 04:33] LABS: Albumin 1.4 G/DL (3.4-5.0); Bilirubin,Total 0.9 MG/DL (0.2-1.0); Calcium 7.6 MG/DL (8.5-10.1); Ferritin 1955.8 ng/ml (26-388); Osmolality,Calculated 304.4 MOS/KG (273-304)
[2020-05-20] MEDS: methylPREDNISolone SOD SUC 40 MG/1 ML VIAL IV SCH (06:25)
[2020-05-20] MEDS ORDERED: FUROSEMIDE 40 MG/4 ML VIAL IV ONE ×2 (06:26→07:23)
[2020-05-20] MEDS: INSULIN LISPRO 100 UNIT/ML SUBCUT SCH (08:35)
[2020-05-20] MEDS ORDERED: PANTOPRAZOLE 40 MG VIAL IV SCH (09:00)
[2020-05-20] MEDS ORDERED: MORPHINE 4 MG/1 ML VIAL IV PRN (09:33)
[2020-05-20] MEDS: LORazepam 2 MG/1 ML VIAL IV PRN ×4 (10:15→22:08)
[2020-05-20] MEDS ORDERED: fentaNYL 25 MCG/HR PATCH TRANSDERM SCH (14:00)
[2020-05-20] MEDS ORDERED: MORPHINE 4 MG/1 ML VIAL IV ONE (18:04)
[2020-05-20] MEDS ORDERED: LORazepam 2 MG/1 ML VIAL IV ONE (18:04)
[2020-05-20] MEDS ORDERED: ACETAMINOPHEN 650 MG SUPP RECTAL ONE (18:06)
[2020-05-20] MEDS: MORPHINE 4 MG/1 ML VIAL IV PRN (21:09)
[2020-05-21] MEDS: LORazepam 2 MG/1 ML VIAL IV PRN (06:20)
[2020-05-21] MEDS: MORPHINE 4 MG/1 ML VIAL IV PRN (08:10)
[2020-05-21] MEDS ORDERED: LORazepam 2 MG/1 ML VIAL IV STA (16:51)
[2020-05-21] MEDS ORDERED: MORPHINE 4 MG/1 ML VIAL IV ONE (16:51)
[2020-05-22] MEDS ORDERED: MORPHINE 4 MG/1 ML VIAL IV ONE (07:06)
[2020-05-22] MEDS ORDERED: LORazepam 2 MG/1 ML VIAL IV ONE (07:06)
[2020-05-22 07:47] VITALS: BP 67/33
== END 2020-05-22 09:32 | disposition expired | DRG 177 ==
LOC: N.ED 05:15 → SUATTDRO 09:06 → N.EDINP 09:06 → N.2E 10:16
PROVIDERS: ADMIT Internal Medicine; ATTEND Internal Medicine